=== PATIENT | female | born 1995 | race Caucasian/White ===

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

== ENCOUNTER → 2017-01-23 | Outpatient (CLI) | payer BC | LOC: BHSO 13:17 | DX: F41.1 Generalized anxiety disorder (principal) ==

== ENCOUNTER → 2017-05-01 | Outpatient (CLI) | payer BC | LOC: BHSO 14:11 | DX: F41.1 Generalized anxiety disorder (principal) ==